=== PATIENT | male | born 1985 | race Caucasian/White ===

== ENCOUNTER 2016-08-14 10:42 | Emergency (ER) | payer OTHER ==
[~2016-08-14] VITALS: Ht 193 cm; Wt 96.2 kg
[~2016-08-14 10:42] MED LIST: NOHOMEMEDICATIONS; NORCO 5-325 TA1 EACH PO
[2016-08-14 11:36] LABS: ABSOLUTE NEUTROPHILS 5.6 thou/uL (1.4-8.2); BASOPHILS 1.1 % (0.0-2.0); EOSINOPHILS 0.5 % (0.0-3.0); HEMATOCRIT 49.4 % (42.0-52.0); HEMOGLOBIN 17.3 gm/dL (14.0-18.0); LYMPHOCYTES 18.7 % (24.0-44.0); MCH 31.3 pg (26.0-34.0); MCHC 35.1 g/dL (28.0-37.0); MCV 89.2 fL (80.0-100.0); MONOCYTES 7.2 % (1.0-8.0); PLATELET COUNT 192 thou/uL (150-400); POLYS 72.5 % (36.0-66.0); RBC 5.54 mil/uL (4.50-6.00); RDW 13.2 % (10.5-14.5); WBC 7.7 thou/uL (4.0-11.0)
[2016-08-14 11:38] LABS: MANUAL DIFF NO
[2016-08-14 11:48] LABS: ANION GAP 10 mmol/L (7-16); BUN 5 mg/dL (7-18); CALCIUM 9.3 mg/dL (8.5-10.1); CHLORIDE 106 mmol/L (98-107); CO2 26 mmol/L (21-32); CREATININE 0.9 mg/dL (0.7-1.3); GLUCOSE 100 mg/dL (74-106); SODIUM 142 mmol/L (136-145)
[2016-08-14 11:51] LABS: AMP/METHAMP Negative (Negative); BARBITURATES Negative (Negative); BENZODIAZEPINES Negative (Negative); COCAINE Negative (Negative); METHADONE Negative (Negative); OPIATES Negative (Negative); PCP Negative (Negative); THC POSITIVE (Negative)
[2016-08-14 11:52] LABS: ACETAMINOPHEN < 2 ug/mL (10-30); SALICYLATE < 2.8 mg/dL (2.8-20.0)
[2016-08-14 15:37] VITALS: BP 137/79
== END 2016-08-14 18:30 ==
LOC: ER 10:42
PROVIDERS: Nurse Practitioner
DX: R45.851 Suicidal ideations (principal); F17.210 Nicotine dependence, cigarettes, uncomplicated; F10.99 Alcohol use, unspecified with unspecified alcohol-induced disorder